=== PATIENT | female | born 1960 | race Caucasian/White ===

== ENCOUNTER → 2020-03-26 | Outpatient (CLI) | payer BC, MEDICAID ==
[~2020-03-26] MED LIST: ASCO1CAP2 PO; CALC1CAP10 PO; CHOL10003 PO; CYAN500T7 PO; biotin PO
[2020-03-26 16:50] LABS: MICROSCOPIC AUTO
[2020-03-26 16:57] LABS: PROTHROMBIN TIME 10.7 Seconds (9.6-11.5)
[2020-03-26 16:58] LABS: BASOPHILS % (AUTO) 1 % (0-1); EOSINOPHILS % (AUTO) 1 % (1-7); LYMPHOCYTES % (AUTO) 35 % (22-44); MEAN CORPUSCULAR HEMOGLOBIN 30.5 pg (27.0-34.8); MEAN CORPUSCULAR HGB CONC 34.3 g/dL (32.4-35.8); MONOCYTES % (AUTO) 7 % (2-9); NEUTROPHILS % (AUTO) 56 % (42-75); PLATELET COUNT 327 x10^3/uL (130-400); RED BLOOD COUNT 4.61 x10^6/uL (3.82-5.3); RED CELL DISTRIBUTION WIDTH 13.1 % (9.6-15.2)
[2020-03-26 17:02] LABS: MD NO
[2020-03-26 17:10] LABS: ANION GAP 7 mmol/L (5-15); CALCIUM 9.1 mg/dL (8.5-10.1); CHLORIDE 107 mmol/L (98-107); CREATININE 0.89 mg/dL (0.55-1.02)
== END | disposition home or self-care (01) ==
LOC: STAR 15:49
PROVIDERS: ATTEND Neurological Surgery
DX: Z01.818 Encounter for other preprocedural examination (principal); M48.02 Spinal stenosis, cervical region
CPT/HCPCS: 36415; 80048; 81001; 85025; 85610; 85730; 87086; 93005

== ENCOUNTER 2020-04-01 14:40 | Outpatient (CLI) | payer BC, MEDICAID | END 2020-04-01 23:59 | disposition home or self-care (01) | LOC: STAR 14:40 | PROVIDERS: ATTEND Anesthesiology | DX: Z20.822 Contact with and (suspected) exposure to COVID-19 (principal) | CPT/HCPCS: 87635 ==

== ENCOUNTER 2020-04-07 05:43 | Day surgery (SDC) | payer BC, MEDICAID ==
[2020-03-26 16:22] VITALS: BP 111/72
[~2020-04-07] VITALS: Ht 157.5 cm; Wt 68.0 kg
[2020-04-07] MEDS ORDERED: CHLORHEXIDINE 15 ML UDC MM ONE (06:30)
[2020-04-07] MEDS ORDERED: LACTATED RINGERS 1,000 ML IV SCH (06:30)
[2020-04-07] MEDS ORDERED: FENTANYL PF 250 MCG/5ML ONE (06:47)
[2020-04-07] MEDS ORDERED: MIDAZOLAM 1 MG/ML, 2ML ONE (06:47)
[2020-04-07] MEDS ORDERED: BACITRACIN 50,000 UNIT ONE (06:52)
[2020-04-07] MEDS ORDERED: BUPIVACAINE/PF 0.5% ONE (06:52)
[2020-04-07] MEDS ORDERED: EPINEPHRINE 1 MG/ML, 1ML ONE (06:52)
[2020-04-07] MEDS ORDERED: SCOPOLAMINE 1MG PATCH TD ONE (07:04)
[2020-04-07] MEDS ORDERED: PHENYLEPHRINE 10 MG/ML ONE (07:22)
[2020-04-07] MEDS ORDERED: morphine SULFATE 10 MG/ML, 1ML IVPush PRN (07:30)
[2020-04-07] MEDS ORDERED: PROMETHAZINE 25 MG/ML, 1ML IVPush PRN (07:30)
[2020-04-07] MEDS ORDERED: hydrALAzine 20 MG/ML, 1ML IV PRN (07:30)
[2020-04-07] MEDS ORDERED: HYDROmorphone 1 MG/ML, 1ML INJ IVPush PRN (07:30)
[2020-04-07] MEDS ORDERED: LABETALOL 5MG/ML, 20ML IV PRN (07:30)
[2020-04-07] MEDS ORDERED: MEPERIDINE/PF 25MG/0.5ML IVPush PRN (07:30)
[2020-04-07] MEDS ORDERED: ACETAMINOPHEN 325 MG TABLET PO PRN ×2 (07:30→13:00)
[2020-04-07] MEDS ORDERED: HALOPERIDOL 5 MG/ML IV PRN (07:30)
[2020-04-07] MEDS ORDERED: OXYcodone 5 MG/5 ML ORAL.SOL UDC PO PRN (07:30)
[2020-04-07] MEDS ORDERED: GLYCOPYRROLATE 0.2MG/1ML, 5ML ONE (08:38)
[2020-04-07] MEDS ORDERED: ROCURONIUM 10MG/ML,5ML ONE (08:38)
[2020-04-07] MEDS ORDERED: DEXAMETHASONE 4 MG/ML, 1ML ONE (08:38)
[2020-04-07] MEDS ORDERED: PROPOFOL 10 MG/ML, 20ML ONE (08:38)
[2020-04-07] MEDS ORDERED: ONDANSETRON 2MG/ML, 2ML ONE (08:38)
[2020-04-07] MEDS ORDERED: NEOSTIGMINE 1 MG/ML, 10ML ONE (08:38)
[2020-04-07] MEDS ORDERED: CEFAZOLIN 1,000 MG ONE (08:38)
[2020-04-07] MEDS ORDERED: ACETAMINOPHEN 650 MG/20.3 ML UDC ONE (09:09)
[2020-04-07] MEDS ORDERED: OXYcodone 5 MG/5 ML ORAL.SOL UDC ONE (09:09)
[2020-04-07] MEDS ORDERED: FENTANYL PF 100 MCG/2ML ONE (09:14)
[2020-04-07] MEDS: FENTANYL PF 100 MCG/2ML IV PRN ×3 (09:15→10:00)
[2020-04-07] MEDS ORDERED: PROMETHAZINE 25 MG/ML, 1ML ONE (09:16)
[2020-04-07] MEDS ORDERED: METHOCARBAMOL 1,000 MG in DEXTROSE 5% 100 ML IV PRN (09:30)
[2020-04-07] MEDS ORDERED: OXYcodone IR 5MG TABLET PO PRN (13:00)
[2020-04-07] MEDS ORDERED: TIZANIDINE 4MG TABLET PO PRN (13:00)
== END 2020-04-07 17:20 | disposition home or self-care (01) ==
LOC: OUT 05:43
PROVIDERS: ATTEND Neurological Surgery
DX: M47.12 Other spondylosis with myelopathy, cervical region (principal); M48.02 Spinal stenosis, cervical region; M54.12 Radiculopathy, cervical region; M54.16 Radiculopathy, lumbar region; M25.78 Osteophyte, vertebrae; Z79.899 Other long term (current) drug therapy; Z88.0 Allergy status to penicillin; Z88.5 Allergy status to narcotic agent; Z98.890 Other specified postprocedural states; Z82.61 Family history of arthritis
CPT/HCPCS: 20930; 20936; 22554; 22845; 22854; 36415; 63081; 72040; 86850; 86900; C1713; C1762; C1889; J0171; J0690; J1100; J2250; J2370; J2405; J2704; J2710; J2800; J3010; J7120

== ENCOUNTER → 2020-08-18 | Outpatient (CLI) | payer BC, MEDICAID ==
[~2020-08-18] MED LIST changes: +OMNIPAQUE 350 MG/ML, 100ML BOTTLE ONE
== END | disposition home or self-care (01) ==
LOC: RAD 15:19
PROVIDERS: ATTEND Family Medicine
DX: R10.31 Right lower quadrant pain (principal); M51.36 Other intervertebral disc degeneration, lumbar region
CPT/HCPCS: 74177; Q9967